=== PATIENT | female | born 1955 | race Caucasian/White ===

== ENCOUNTER 2017-02-06 09:10 | Day surgery (SDC) | payer MEDICARE, OTHER ==
[~2017-02-06 09:10] MED LIST: ACETAMINOPHEN 500 MG TABLET PO PRN; HYDROmorphone HCL 2 MG/ML VIAL IV PRN; MAG HYDROX/ALUMINUM HYD/SIMETH 30 ML UDC PO PRN; MAGNESIUM HYDROXIDE 30 ML UDC PO PRN; ONDANSETRON HCL/PF 2 MG/ML VIAL IV PRN; PROMETHAZINE HCL 25 MG in DEXTROSE 5 % IN WATER 50 ML IV PRN; RINGERS SOLUTION,LACTATED 1,000 ML IV PRN; ROPIVACAINE HCL/PF 40 MG in NORMAL SALINE 16 ML IJ PRN; ZOLPIDEM TARTRATE 5 MG TABLET PO PRN; ceFAZolin SODIUM 1 GM VIAL IV PRN; diphenhydrAMINE HCL 50 MG/ML VIAL IV PRN
--- OUTSIDE RECORDS SUMMARY | 2017-02-06 09:14 | XMS REPORT | Continuity of Care Document ---
:1955 Author Organization [id number] [place] [address] Care Team Providers Name Role Phone Unavailable Primary Care Provider Unavailable Source Comments This disclosure is being made pursuant to the [employer] program and maynot contain all information available regarding this patient.[id number] Active Allergies and Adverse Reactions Not on File Current Medications Be aware that medications may not be up to date as of this document. Alwaysverify current medications with the patient. Not on file Active Problems Not on file Social History Tobacco Use Types Packs/Day Years Used Date Never Assessed Plan of Care Health Maintenance Due Date Last Done Comments Retired-Pertussis Vaccine Adult 02/16/1976 Retired-Tetanus Vaccine Adult 02/16/1976 Pap Smear 1978 Mammogram 1997 Colonoscopy 2007 Well Adult Visit 2007 Retired-INFLUENZA VACCINE 07/26/2015 Results from Last 3 Months Not on file
[2017-02-06] MEDS ORDERED: RINGERS SOLUTION,LACTATED 1,000 ML IV ONE (10:26)
[2017-02-06] MEDS ORDERED: BUPIVACAINE HCL/EPINEPHRINE 10 ML VIAL IJ ONE (10:35)
--- NOTE | 2017-02-06 10:44 | OR ---
Operative Report - Dictated Report Narrative: Date: 02/06/2017 Physician: Oscar Zacarias M.D. Station Master: Jaden Carrero PA-C Preoperative diagnosis: Right Knee possible medial meniscus tear, possible loose bodies Postoperative diagnosis: Right Knee medial meniscus tear , hypertrophic Hoffa's fat pad Procedure: Right knee arthroscopy with partial medial meniscectomy, partial excision of Hoffa's fat pad Anesthesia: MAC Plus local Complications: None Estimated blood loss: Minimal Tourniquet time: None Specimens: None Retained implants: None Drains: None Indications: Ms Mccoy Is a 61 year-old female who has been followed in my clinic with complaints of knee pain consistent with suspected medial joint pathology. Physical exam and diagnostic imaging were consistent with these complaints and concern for medial meniscus and loose body pathology. Conservative measures have failed including, but not limited to, passage of time, activity modification, medications, and injections. The risks, benefits, and alternatives were discussed in clinic. The risks being , bleeding, infection, blood clots, nerve, tendon, ligament, blood vessel injury, persistent pain, arthrosis, need for additional procedures, and persistent symptoms. Consent was obtained in the clinic. Procedure: After marking the correct extremity in the preoperative holding area, a timeout was performed in the operating room. IV antibiotics consisting of Ancef were administered prior to the procedure. A well-padded tourniquet was applied to the operative upper thigh. The leg was prepped and draped in a standard sterile fashion. 0.5% Marcaine with epinephrine was infused into the projected portal sites as well as the intra-articular space. A adria incision was made for inferior lateral portal. A blunt trocar and cannula was introduced into the knee. The suprapatellar pouch revealed no pathology or loose body. The medial patella facet showed grade 2 changes. The lateral patella facet showed grade 2 changes. The trochlea showed minimal arthrosis. The medial gutter revealed no pathology or loose bodies. The medial joint space was then entered utilizing a lateral post and valgus stress. A spinal needle was utilized for guidance into placement of an anterior medial portal. This was placed just superior to the medial meniscus ensuring that we could reach the posterior aspect of the medial joint space. A adria incision was made in the site, and the probe was introduced to the knee. The medial joint space was examined, and the medial femoral condyle showed had a 1.5 cm area of near complete chondral loss over the weightbearing portion of the mediofemoral condyle. There was not exposed bone but very thinned out cartilage without any loose chondral edges. The medial tibial plateau showed grade 2 change. The medial meniscus had a tear over the anterior portion extending into the anterior meniscal ligament. The notch was then examined, and the ACL was noted to be intact. The PCL was noted to be intact. The lateral joint space was then examined using a varus force in the figure 4 position. Lateral femoral condyle showed no significant arthrosis. Lateral tibial plateau showed fissuring. The lateral meniscus showed no tear. The lateral gutter showed at the edge or loose bodies. There is notable hypertrophy and impingement of the fat pad into the notch and medial and lateral joint spaces. Shaver was utilized in order to debride the fat pad. Having identified the surgical pathology, a shaver was utilized in order to debride the anterior portion of the medial meniscus. Once it was felt that we adequately addressed the pathology, the knee was thoroughly irrigated. The fluid was evacuated ensuring that we have removed all meniscal, chondral, and any other loose bodies. A final evaluation of the joint showed no additional pathology. The fluid was then evacuated of the knee, and the trocar and camera were removed from the joint. The wounds were closed with interrupted nylon after placing 20 mL of 0.2% ropivacaine into the joint. Dressings consisting of Xeroform, 4 x 4, ABD, soft roll, and an Toño were applied. All sponge, needle, blade, and instrument counts were correct prior to closing the wounds. The patient was awoken and transferred to the postanesthesia care unit in stable condition.
[2017-02-06] MEDS ORDERED: HYDROcodone/ACETAMINOPHEN 1 EACH TABLET PO PRN (11:00)
[2017-02-06 12:05] VITALS: BP 98/60
[2017-02-06] MEDS ORDERED: SENNOSIDES/DOCUSATE SODIUM 1 TAB TABLET PO SCH (21:00)
== END 2017-02-06 09:11 | disposition home or self-care (01) ==
LOC: AMB 09:10
PROVIDERS: ATTEND Orthopaedic Surgery
PROC: 0SBD4ZZ Excision of Left Knee Joint, Percutaneous Endoscopic Approach (ICD-10-PCS; principal; 2017-02-06 10:45)
DX: M23.211 Derangement of anterior horn of medial meniscus due to old tear or injury, right knee (principal); M79.4 Hypertrophy of (infrapatellar) fat pad; J45.909 Unspecified asthma, uncomplicated; J44.9 Chronic obstructive pulmonary disease, unspecified; K21.9 Gastro-esophageal reflux disease without esophagitis; E78.5 Hyperlipidemia, unspecified; E03.9 Hypothyroidism, unspecified; F41.1 Generalized anxiety disorder; F32.9 Major depressive disorder, single episode, unspecified; M19.90 Unspecified osteoarthritis, unspecified site; F17.200 Nicotine dependence, unspecified, uncomplicated; Z68.23 Body mass index [BMI] 23.0-23.9, adult
CPT/HCPCS: 29881; G0289